=== PATIENT | female | born 1995 | race African-American/Black ===

== ENCOUNTER 2022-09-26 22:07 | Inpatient (IN) | payer OTHER ==
[2022-09-26 22:23] VITALS: BMI 32.3
[2022-09-26] MEDS ORDERED: hydrALAZINE 20 MG/ML VIAL SLOW IVP PRN (22:33)
[2022-09-26] MEDS: Lactated Ringer's 1,000 ML IV SCH (23:00)
[2022-09-26 23:09] LABS: Bilirubin Neg (Negative); Blood, Urine Negative (Negative); Clarity Clear (Clear); Glucose, Urine (Dipstick) Normal (Negative); Ketone, Urine Negative (Negative); Leukocyte 500 (Negative); Nitrite Negative (Negative); Protein, Urine (Dipstick) Negative (Neg-Trace); Urobilinogen Normal mg/dL (Less than 2)
[2022-09-26 23:23] LABS: #Eosinphils 0.1 10x3/uL (0.0-0.5); #Monocytes 0.6 10x3/uL (0.0-1.1); #Neutrophils 4.2 10x3/uL (1.5-8.4); %Basophils 0.5 % (0.0-2.0); %Lymphocytes 22.3 % (18.0-47.0); %Monocytes 9.9 % (0.0-10.0); %Neutrophils 64.8 % (40.0-75.0); Hemoglobin 9.2 g/dL (12.0-15.5); Mean Corpuscular HGB CONC 32.9 g/dL (32.0-36.0); Mean Corpuscular Volume 91.2 fl (81.6-98.3); Mean Platelet Volume 9.2 fl (7.4-10.4); Platelet Count 261 10x3/uL (150-450); Red Blood Cell (RBC) Count 3.07 10x6/uL (3.90-5.03); White Blood Cell (WBC) Count 6.5 10x3/uL (3.5-10.5)
[2022-09-26 23:28] LABS: Amphetamine Not Detected (NotDetected); Barbiturates Screen Not Detected (NotDetected); Benzodiazepine Screen Not Detected (NotDetected); Cocaine Metabolite Screen Not Detected (NotDetected); Methadone Not Detected (NotDetected); Methamphetamine Not Detected (NotDetected); Opiate Screen Not Detected (NotDetected); Oxycodone Screen Not Detected (NotDetected); Phencyclidine (PCP) Not Detected (NotDetected); THC/Cannabinoid Screen Not Detected (NotDetected); Tricyclic Screen Not Detected (NotDetected)
[2022-09-26 23:30] LABS: Bacteria/HPF Rare-Few HPF (None Seen); CAUTI Indications for Culture Pregnancy; RBC/HPF 0-3 HPF (0-3); Squamous Epithelial 0-3 HPF (0-3)
[2022-09-26 23:31] LABS: Urine Culture Reflex Yes Yes
[2022-09-26 23:37] LABS: ALT (SGPT) 7 U/L (8-55); AST (SGOT) 11 U/L (5-34); Albumin 3.5 g/dL (3.5-5.0); Alkaline Phosphatase 127 U/L (40-110); Anion Gap 12 mmol/L (10-20); BUN (Urea Nitrogen) 7 mg/dL (7.0-18.7); Bilirubin, Total 0.4 mg/dL (0.2-1.2); Calc. Creatinine Clearance 161 mL/min (70-130); Calcium 8.7 mg/dL (7.8-10.44); Carbon Dioxide 20 mmol/L (22-29); Chloride 108 mmol/L (98-107); Estimated GFR 122; Glucose 87 mg/dL (70-105); Protein, Total 6.5 g/dL (6.0-8.3); Sodium 136 mmol/L (136-145)
[2022-09-26] MEDS ORDERED: cefTRIAXone\\ROCEPHIN 1 GM in Sodium Chloride 0.9% 100 ML IVPB SCH (23:45)
[2022-09-26 23:55] LABS: Hep B Surf Ag - L&D Non-Reactive S/CO (NonReactive); Syphilis Antibody Nonreactive (Nonreactive); Syphilis Antibody Index 0.07 S/CO (<1.00 Non-Reactive)
[2022-09-27] MEDS ORDERED: Bicitra 30 ML UDCUP PO PRN (00:40)
[2022-09-27] MEDS ORDERED: Famotidine/PF 20 mg/2ml Vial SLOW IVP PRN (00:40)
[2022-09-27] MEDS ORDERED: Azithromycin 500 MG in Sodium Chloride 0.9% 250 ML 250 ML IVPB SCH (00:45)
[2022-09-27] MEDS ORDERED: Methylergonovine 0.2 MG/ML VIAL ONE (00:46)
[2022-09-27] MEDS ORDERED: CEFAZOLIN 2 GM VIAL ONE (00:46)
[2022-09-27] MEDS ORDERED: Carboprost 250 MCG/ML AMP ONE (00:47)
[2022-09-27] MEDS ORDERED: Misoprostol 200 MCG TAB ONE (00:47)
[2022-09-27] MEDS ORDERED: Tranexamic Acid 1,000 MG/10 ML VIAL ONE ×2 (00:47→01:06)
[2022-09-27] MEDS ORDERED: Carboprost 250 MCG/ML AMP IM PRN (00:50)
[2022-09-27] MEDS ORDERED: Diphenoxylate HCl/Atropine Tablet PO PRN (00:50)
[2022-09-27] MEDS ORDERED: hydrALAZINE 20 MG/ML VIAL SLOW IVP PRN (00:50)
[2022-09-27] MEDS ORDERED: Tranexamic Acid 1,000 MG/10 ML VIAL IVP PRN (00:50)
[2022-09-27] MEDS ORDERED: Ondansetron PF 4 MG/2 ML Vial IVP PRN (00:50)
[2022-09-27] MEDS ORDERED: Misoprostol 200 MCG TAB PR PRN (00:50)
[2022-09-27] MEDS ORDERED: fentaNYL 50 mcg/mL 1 mL Vial ONE (00:53)
[2022-09-27] MEDS ORDERED: Morphine PF 10 MG/10 ML VIAL ONE (00:53)
[2022-09-27] MEDS ORDERED: Oxytocin 10 UNITS/ML VIAL ONE (00:59)
[2022-09-27] MEDS ORDERED: NS w/ Oxytocin 30 units 500 ML IV SCH (01:00)
[2022-09-27] MEDS ORDERED: Ondansetron PF 4 MG/2 ML Vial ONE (01:00)
[2022-09-27] MEDS ORDERED: Dexamethasone 4 mg/ml Vial ONE (01:00)
[2022-09-27] MEDS ORDERED: PHENYLEPHRINE-NS 100 MCG/ML 10 ML SYRINGE ONE (01:24)
[2022-09-27] MEDS ORDERED: Boostrix 0.5 ML (Tdap) VIAL (>/=7 yrs of age) IM ONE (02:20)
[2022-09-27] MEDS ORDERED: Simethicone Chewable 80 MG TAB PO PRN (02:20)
[2022-09-27] MEDS ORDERED: Bisacodyl 10 MG SUPP PR PRN (02:20)
[2022-09-27] MEDS ORDERED: Measles/Mumps/Rubella 10 MCG/0.5 ML VIAL SC ONE (02:28)
[2022-09-27] MEDS ORDERED: Varicella virus, LIVE 0.5 ML VIAL SC ONE (02:28)
[2022-09-27] MEDS ORDERED: Ibuprofen 800 MG TAB PO SCH (06:00)
[2022-09-27] MEDS: Ferrous Sulfate 325 MG TAB PO SCH ×2 (08:24→19:51)
[2022-09-27] MEDS: Docusate 100 MG CAP PO SCH ×2 (08:24→19:51)
[2022-09-27] MEDS: Prenatal Vitamin 1 TAB PO SCH (12:29)
[2022-09-27] MEDS: Ketorolac Tromethamine 30 MG/ML VIAL IVP SCH ×2 (16:43→17:27)
[2022-09-27] MEDS: HYDROcodone/Acetaminophen 5/325 mg Tablet PO PRN (21:23)
[2022-09-28] MEDS: Ibuprofen 800 MG TAB PO SCH ×3 (03:03→19:32)
[2022-09-28] MEDS: HYDROcodone/Acetaminophen 5/325 mg Tablet PO PRN ×4 (03:17→19:32)
[2022-09-28] MEDS: Ferrous Sulfate 325 MG TAB PO SCH ×2 (08:10→19:32)
[2022-09-28] MEDS: Docusate 100 MG CAP PO SCH ×2 (08:10→19:32)
[2022-09-28] MEDS: Lactated Ringer's 1,000 ML IV SCH ×4 (08:28→18:11)
[2022-09-28] MEDS: Prenatal Vitamin 1 TAB PO SCH (08:31)
[2022-09-29] MEDS: HYDROcodone/Acetaminophen 5/325 mg Tablet PO PRN ×3 (00:27→10:28)
[2022-09-29] MEDS: Lactated Ringer's 1,000 ML IV SCH (01:19)
[2022-09-29] MEDS: Ibuprofen 800 MG TAB PO SCH ×2 (03:29→10:30)
[2022-09-29] MEDS: Prenatal Vitamin 1 TAB PO SCH (09:00)
[2022-09-29] MEDS: Ferrous Sulfate 325 MG TAB PO SCH (09:00)
[2022-09-29] MEDS: Docusate 100 MG CAP PO SCH (09:00)
[2022-09-29 09:43] VITALS: BP 110/66; TEMP 97.7
== END 2022-09-29 11:50 | disposition home or self-care (01) | DRG 787 ==
LOC: CSHLD/OP 22:07 → CSHLD 09-27 00:38 → CSHPED 09-27 06:00
PROVIDERS: ADMIT Obstetrics & Gynecology; ATTEND Obstetrics & Gynecology
PROC: 10D00Z1 Extraction of Products of Conception, Low, Open Approach (ICD-10-PCS; principal; 2022-09-27)
DX: O34.211 Maternal care for low transverse scar from previous cesarean delivery (principal); N39.0 Urinary tract infection, site not specified; O23.43 Unspecified infection of urinary tract in pregnancy, third trimester; O13.4 Gestational [pregnancy-induced] hypertension without significant proteinuria, complicating childbirth; Z3A.38 38 weeks gestation of pregnancy; Z37.0 Single live birth; O69.81X0 Labor and delivery complicated by cord around neck, without compression, not applicable or unspecified; O32.8XX0 Maternal care for other malpresentation of fetus, not applicable or unspecified
CPT/HCPCS: 51702; 76815; 80053; 80306; 81001; 85025; 86762; 86780; 86850; 86900; 86901; 87086; 87340; 99284; 99285; J0696; J1100; J1885; J2210; J2274; J2405; J2590; J3010; J3490